=== PATIENT | female | born 1960 | race Two or more races ===

== ENCOUNTER 2017-01-03 10:08 | Emergency (ER) | payer SELFPAY ==
[~2017-01-03] VITALS: Ht 152.4 cm; Wt 45.8 kg
[2017-01-03] MEDS ORDERED: DIAZEPAM 5 MG/ML 2 ML DISP.SYRIN IM ONE (10:30)
[2017-01-03] MEDS ORDERED: MORPHINE SULFATE INJ 2 MG/ML DISP.SYRIN IM ONE ×2 (10:30)
[2017-01-03] MEDS ORDERED: DIAZEPAM 5 MG/ML 2 ML DISP.SYRIN ONE (10:36)
[2017-01-03] MEDS ORDERED: MORPHINE SULFATE INJ 4 MG/ML DISP.SYRIN ONE (10:37)
[2017-01-03] MEDS ORDERED: HYDROCODONE/APAP 5/325MG 1 EACH TABLET ONE (11:58)
[2017-01-03] MEDS ORDERED: HYDROCODONE/APAP 5/325MG 1 EACH TABLET PO ONE (12:00)
[2017-01-03 12:12] VITALS: BP 142/84
== END 2017-01-03 12:13 | disposition home or self-care (01) ==
LOC: ER 10:10
DX: S16.1XXA Strain of muscle, fascia and tendon at neck level, initial encounter (principal); R51 Headache; V43.52XA Car driver injured in collision with other type car in traffic accident, initial encounter; Y93.89 Activity, other specified; Y92.89 Other specified places as the place of occurrence of the external cause; Y99.9 Unspecified external cause status
CPT/HCPCS: 70450; 71010; 72125; 72170; 96372 ×2; 99284; A4606; J2270; J3360; Z7610